=== PATIENT | female | born 1980 | race Caucasian/White ===

== ENCOUNTER 2025-10-20 10:40 | Emergency (ER) | payer BC ==
[~2025-10-20] VITALS: Ht 182.9 cm; Wt 89.9 kg
[2025-10-20] MEDS ORDERED: LEXA1TAB PO (10:55)
[2025-10-20 13:37] VITALS: BP 124/63; TEMP 98.1; O2SAT 99
== END 2025-10-20 13:40 | disposition home or self-care (01) ==
LOC: M ED 10:40
DX: S49.92XA Unspecified injury of left shoulder and upper arm, initial encounter (principal); Y92.9 Unspecified place or not applicable; Y93.29 Activity, other involving ice and snow; Y99.9 Unspecified external cause status; W19.XXXA Unspecified fall, initial encounter; Z79.899 Other long term (current) drug therapy